=== PATIENT | male | born 1960 | race Caucasian/White ===

== ENCOUNTER 2017-04-01 09:09 | Emergency (ER) | payer BC ==
--- NOTE | 2017-04-01 10:26 | EDM.PDOC ---
ED HPI GENERAL MEDICAL PROBLEM - General Chief Complaint: Lower Extremity Injury/Pain Stated Complaint: KNEE PAIN Time Seen by Provider: 04/01/17 09:26 Source of Information: Reports: Patient, RN Notes Reviewed - History of Present Illness INITIAL COMMENTS - FREE TEXT/NARRATIVE: 56-year-old male comes in with right knee pain. This started 2 days ago. He was ice fishing and he states with the kneeling up and down he started having some discomfort of the right knee. When he was done fishing he tried to load severe up a fairly steep hill to his pickup truck. Her that evening the knee was very painful and swollen. The swelling has gone down yesterday and today but he still continues to have pain with motion and ambulation. No other recent injury. He did have some trouble with the knee many years ago, had a meniscus tear cured with arthroscopic surgery. Treatments GLOVE CLEANER: Reports: Other Medication(s) Other Treatments GLOVE CLEANER: tramadol Right Knee Pain Score (Numeric/FACES): 4 - Related Data Allergies Allergy/AdvReac Type Severity Reaction Status Date / Time acetaminophen [From Tylenol] Allergy Anaphylactic Verified 04/01/17 09:23 Shock aspirin Allergy Anaphylactic Verified 04/01/17 09:23 Shock ibuprofen [From Motrin] Allergy Anaphylactic Verified 04/01/17 09:23 Shock morphine Allergy Anaphylactic Verified 04/01/17 09:23 Shock Home Meds: Home Meds traMADol [Ultram] 50 mg PO Q12HR PRN 04/01/17 [History] Past Medical History HEENT History: Reports: Impaired Vision Musculoskeletal History: Reports: Fracture Other Musculoskeletal History: right arm Dermatologic History: Reports: Eczema - Past Surgical History Musculoskeletal Surgical History: Reports: Arthroscopic Knee, Carpal Tunnel Social & Family History - Family History Family Medical History: Noncontributory - Tobacco Use Smoking Status *Q: Never Smoker - Caffeine Use Caffeine Use: Reports: None - Recreational Drug Use Recreational Drug Use: No Review of Systems - Review of Systems Review Of Systems: See Below Constitutional: Reports: No Symptoms. Denies: Chills, Fever Mouth/Throat: Reports: No Symptoms Respiratory: Reports: No Symptoms Cardiovascular: Reports: No Symptoms GI/Abdominal: Reports: No Symptoms Musculoskeletal: Reports: Joint Pain (Right knee) Skin: Reports: No Symptoms Neurological: Reports: No Symptoms ED EXAM, GENERAL - Physical Exam Exam: See Below General Appearance: Alert, No Apparent Distress Respiratory/Chest: No Respiratory Distress Extremities: Joint Swelling (This very mild swelling of the right knee at this time, no joint effusion), Other (He does have very mild tenderness of the lower medial aspect of the knee, pain with flexion and extension, joint stable). No: Pedal Edema, Leg Pain, Increased Warmth, Redness Skin Exam: Warm, Dry, Normal Color Course - Vital Signs Last Recorded V/S: Last Vital Signs Temp 98.5 F 04/01/17 09:17 Pulse 84 04/01/17 09:17 Resp 18 04/01/17 09:17 BP 142/89 H 04/01/17 09:17 Pulse Ox 100 04/01/17 09:17 - Orders/Labs/Meds Orders: Active Orders 24 hr Category Date Time Status Knee Min 4V Rt [CR] Stat Exams 04/01/17 09:40 Taken - Re-Assessments/Exams Free Text/Narrative Re-Assessment/Exam: 04/01/17 10:43 X-rays the knee does not show any visible acute bony abnormality. Departure - Departure Time of Disposition: 10:21 Disposition: Home, Self-Care 01 Condition: Fair Clinical Impression: Right knee sprain Qualifiers: Encounter type: initial encounter Involved ligament of knee: unspecified ligament Qualified Code(s): S83.91XA - Sprain of unspecified site of right knee , initial encounter - Discharge Information Instructions: Knee Sprain Referrals: Brenda Spaulding [Primary Care Provider] - Forms: ED Department Discharge Additional Instructions: Rest leg and knee, increase activity slowly as tolerated, alternating ice and heat today will help the discomfort and inflammation, prednisone 40 mg, two 20 mg tabs daily for 5 days, follow-up with one of our orthopedists if symptoms not resolving over the next 3-5 days as expected or if having frequent reoccurrence of knee pain and swelling. Return to ED as needed. - My Orders Last 24 Hours: My Active Orders 04/01/17 09:40 Knee Min 4V Rt [CR] Stat - Assessment/Plan Last 24 Hours: My Active Orders 04/01/17 09:40 Knee Min 4V Rt [CR] Stat
--- NOTE | 2017-04-02 07:59 | CR ---
Right knee: Four views of the right knee were obtained. Comparison: No prior knee study. Calcification is seen off the medial and posterior knee believed to be dystrophic. Medial and lateral joint compartments are maintained in height. Small joint effusion is seen. Minimal spur is noted off the superior patella. No acute fracture or other bony abnormality is seen. Impression: 1. Small joint effusion. Soft tissue calcification. Minimal spurring off the superior patella. 2. No acute bony abnormality is appreciated. Diagnostic code #2
== END 2017-04-01 10:32 | disposition home or self-care (01) ==
LOC: JD.ED 09:09
DX: S83.91XA Sprain of unspecified site of right knee, initial encounter (principal); Z88.8 Allergy status to other drugs, medicaments and biological substances; Z88.6 Allergy status to analgesic agent; Z88.5 Allergy status to narcotic agent; X58.XXXA Exposure to other specified factors, initial encounter
CPT/HCPCS: 73564-26-RT; 73564-RT; 99283

== ENCOUNTER 2018-12-11 08:00 | Inpatient (IN) | payer OTHER ==
[~2018-12-11 08:00] MED LIST: Albuterol 0.083% 2.5 MG/3 ML Neb Soln NEB SCH; Bisacodyl 5 MG Tab PO PRN; EPINEPHrine 1 MG/1 ML Amp ONE; Famotidine 20 MG Tab PO SCH; HYDROmorphone 0.5 MG/0.5 ML Syringe IVPUSH PRN; Lactated Ringers 1,000 ML IV SCH; Lidocaine 1%/Sod Bicarbonate in NS 8.4% 1 ML Syringe IDERM PRN; Magnesium Hydroxide 400 MG/5 ML Susp 30 ML Cup PO PRN; Naloxone 0.4 MG/ML SDV IVPUSH PRN; Ondansetron 4 MG/2 ML SDV IVPUSH PRN; Pregabalin 25 MG Cap PO SCH; Ropivacaine 0.5% 5 MG/ML 30 ML SDV ONE; Sennosides 8.6 MG Tab PO PRN; Sodium Chloride 0.9% 10 ML Syringe FLUSH PRN; ceFAZolin 2 GM in Premix Bag 1 BAG IV SCH; oxyCODONE 5 MG Tab PO PRN; oxyCODONE ER 10 MG TAB.ER PO SCH
[2018-12-11] MEDS ORDERED: Ketamine 500 mg/10 ML MDV ONE (08:45)
[2018-12-11] MEDS ORDERED: Propofol 200 MG/20 ML SDV ONE ×2 (08:45→10:59)
[2018-12-11] MEDS ORDERED: Midazolam 1 MG/ML 2 ML SDV ONE (08:45)
[2018-12-11] MEDS ORDERED: fentaNYL 100 MCG/2 ML SDV ONE (08:45)
[2018-12-11] MEDS ORDERED: Lidocaine 1% 4 ML ONE (08:46)
[2018-12-11] MEDS ORDERED: Bupivacaine 0.75% 30 ML SDV ONE (08:47)
[2018-12-11] MEDS ORDERED: ceFAZolin 1 GM Vial ONE ×2 (09:07→09:08)
[2018-12-11] MEDS ORDERED: Vancomycin 1 GM SDV ONE (09:07)
[2018-12-11] MEDS ORDERED: Iodine/Sodium Iodide 2% Tincture 30 ML Bottle ONE (09:08)
[2018-12-11] MEDS ORDERED: Bupivacaine 0.25% 10 ML SDV ONE (09:12)
--- NOTE | 2018-12-11 09:21 | PCM.PREANE ---
Preanesthetic Assessment - Anesthesia/Transfusion/Family Hx Anesthesia History: Prior Anesthesia Without Reaction Family History of Anesthesia Reaction: No Transfusion History: No Prior Transfusion(s) - Review of Systems General: No Symptoms Pulmonary: No Symptoms (TOM does wear CPAP) Cardiovascular: No Symptoms Gastrointestinal: No Symptoms Neurological: No Symptoms, Other Other: Reports: Anxiety - Physical Assessment NPO Status Date: 12/10/18 NPO Status Time: 22:00 Vital Signs: Last Vital Signs Temp 36.6 C 12/11/18 08:10 Pulse 63 12/11/18 08:10 Resp 16 12/11/18 08:10 BP 120/79 12/11/18 08:10 Pulse Ox 98 12/11/18 08:10 Height: 1.83 m Weight: 89.811 kg ASA Class: 2 Mental Status: Alert & Oriented x3 Airway Class: Mallampati = 2 Dentition: Reports: Normal Dentition (Wear noted to enamel.) Thyro-Mental Finger Breadths: 3 Mouth Opening Finger Breadths: 3 ROM/Head Extension: Full Lungs: Clear to Auscultation, Normal Respiratory Effort Cardiovascular: Regular Rate, Regular Rhythm - Lab Values: Laboratory Last Values MRSA (PCR) Negative 12/10/18 14:36 - Imaging/EKG Impressions: SR with a 1st degree AV block at 52bmp - Allergies Allergies/Adverse Reactions: Allergies Allergy/AdvReac Type Severity Reaction Status Date / Time acetaminophen [From Tylenol] Allergy Anaphylactic Verified 12/10/18 15:29 Shock aspirin Allergy Anaphylactic Verified 12/10/18 15:29 Shock ibuprofen [From Motrin] Allergy Anaphylactic Verified 12/10/18 15:29 Shock - Anesthesia Plan Pre-Op Medication Ordered: Anxiolytic - Acknowledgements Anesthesia Type Planned: Spinal Pt an Appropriate Candidate for the Planned Anesthesia: Yes Alternatives and Risks of Anesthesia Discussed w Pt/Guardian: Yes Pt/Guardian Understands and Agrees with Anesthesia Plan: Yes Additional Comments: Preoperative CXR documented atelectasis. Preoperative nebulizer treatment administered. Patient educted on coughing and deep breathing postoperatively. IS recommended for postoperative period. [place] and Dr. Ghosh notified. 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 Musculoskeletal History: Reports: Back Pain, Chronic, Fracture Other Musculoskeletal History: right arm Neurological History: Reports: None Psychiatric History: Reports: Anxiety, Other (See Below) Other Psychiatric History: fatigue, insomnia Endocrine/Metabolic History: Reports: Other (See Below) Other Endocrine/Metabolic History: night sweats Hematologic History: Reports: None Immunologic History: Reports: None Oncologic (Cancer) History: Reports: None Dermatologic History: Reports: Eczema - Past Surgical History Head Surgeries/Procedures: Reports: None HEENT Surgical History: Reports: None Cardiovascular Surgical History: Reports: None Respiratory Surgical History: Reports: None GI Surgical History: Reports: Colonoscopy, Hernia Repair/Other Female Surgical History: Reports: None Male Surgical History: Reports: None Endocrine Surgical History: Reports: None Neurological Surgical History: Reports: None Musculoskeletal Surgical History: Reports: Arthroscopic Knee, Carpal Tunnel Oncologic Surgical History: Reports: None Dermatological Surgical History: Reports: None - SUBSTANCE USE Smoking Status *Q: Never Smoker Recreational Drug Use History: No - HOME MEDS Home Medications: Home Meds traMADol [Ultram] 50 mg PO Q12HR PRN 04/01/17 [History] Calcium Carbonate [Calcium] 600 mg PO DAILY 12/10/18 [History] Cholecalciferol (Vitamin D3) [Vitamin D3] 5,000 unit PO DAILY 12/10/18 [History] EPINEPHrine [Epipen] 1 dose IM ONETIME PRN 12/10/18 [History] Escitalopram Oxalate 10 mg PO BEDTIME 12/10/18 [History] Sildenafil 25 mg PO ASDIRECTED PRN 12/10/18 [History] Fish Oil/[place]-3 Fatty Acids [Fish Oil] 1,200 mg PO DAILY 12/11/18 [History] - CURRENT (IN HOUSE) MEDS Current Meds: Current Medications Albuterol (Proventil Neb Soln) 2.5 mg NEB ONETIME [facility] Stop: 12/11/18 18:00 Bisacodyl (Dulcolax) 5 mg PO DAILY PRN PRN Reason: Constipation Epinephrine HCl 0.3 mg/Cefuroxime Sodium 750 mg/Sodium Chloride 29.7 ml 0 mg .XX ONETIME ONE Stop: 12/11/18 11:01 Cyclobenzaprine HCl (Flexeril) 10 mg PO TID PRN PRN Reason: Spasms Docusate Sodium (Colace) 100 mg PO BID [facility] Famotidine (Pepcid) 20 mg PO Q12HR [facility] Hydromorphone HCl (Dilaudid) 0.2 mg IVPUSH Q2H PRN PRN Reason: Pain (moderate 4-6) Lactated Ringer's (Ringers, Lactated) 1,000 mls @ 125 mls/hr IV ASDIRECTED [facility] Stop: 12/11/18 23:00 Last Admin: 12/11/18 08:15 Dose: 125 mls/hr Cefazolin Sodium/Dextrose 2 gm (/ Premix) 50 mls @ 100 mls/hr IV Q8H [facility] Stop: 12/11/18 23:44 Lidocaine/Sodium Bicarbonate (Buffered Lidocaine 1% In Ns 8.4%) 0.25 ml IDERM ONETIME PRN PRN Reason: Prior to IV Start Stop: 12/11/18 18:00 Last Admin: 12/11/18 08:15 Dose: 0.25 ml Magnesium Hydroxide (Milk Of Magnesia) 30 ml PO BID PRN PRN Reason: Constipation Naloxone HCl (Narcan) 0.1 mg IVPUSH Q5M PRN PRN Reason: Oversedation Ondansetron HCl (Zofran) 4 mg IVPUSH Q6H PRN PRN Reason: Nausea/Vomiting Oxycodone HCl (Oxycontin) 10 mg PO ONETIME [facility] Stop: 12/11/18 13:30 Last Admin: 12/11/18 08:57 Dose: 10 mg Oxycodone HCl (Oxycodone) 5 - 10 mg PO Q4H PRN PRN Reason: Pain Pregabalin (Lyrica) 50 mg PO ONETIME [facility] Stop: 12/11/18 16:00 Last Admin: 12/11/18 08:57 Dose: 50 mg Rivaroxaban (Xarelto) 10 mg PO DAILY [facility] Senna (Senna) 8.6 mg PO BID PRN PRN Reason: Constipation Sodium Chloride (Saline Flush) 10 ml FLUSH ASDIRECTED PRN PRN Reason: Keep Vein Open Stop: 12/11/18 18:00 Discontinued Medications Bupivacaine HCl (Sensorcaine-Mpf 0.75%) Confirm Administered Dose 30 ml .ROUTE .STK-MED ONE Stop: 12/11/18 08:48 Bupivacaine HCl (Sensorcaine-Mpf 0.25%) Confirm Administered Dose 30 ml .ROUTE .STK-MED ONE Stop: 12/11/18 09:08 Bupivacaine HCl (Sensorcaine-Mpf 0.25%) Confirm Administered Dose 10 ml .ROUTE .STK-MED ONE Stop: 12/11/18 09:13 Cefazolin Sodium (Ancef) Confirm Administered Dose 2 gm .ROUTE .STK-MED ONE Stop: 12/11/18 08:47 Cefazolin Sodium (Ancef) Confirm Administered Dose 2 gm .ROUTE .STK-MED ONE Stop: 12/11/18 09:08 Cefazolin Sodium (Ancef) Confirm Administered Dose 2 gm .ROUTE .STK-MED ONE Stop: 12/11/18 09:09 Epinephrine HCl (Adrenalin) Confirm Administered Dose 1 mg .ROUTE .STK-MED ONE Stop: 12/11/18 07:34 Famotidine (Pepcid) 20 mg PO Q12H [facility] Fentanyl (Sublimaze) Confirm Administered Dose 100 mcg .ROUTE .ST-MED ONE Stop: 12/11/18 08:46 Cefazolin Sodium/Dextrose 2 gm (/ Premix) 50 mls @ 100 mls/hr IV Q8H [facility] Stop: 12/11/18 23:29 Lidocaine HCl (Xylocaine-Mpf 1%) Confirm Administered Dose 4 mls @ as directed .ROUTE .STK-MED ONE Stop: 12/11/18 08:47 Iodine (Iodine 2% Mild Tincture) Confirm Administered Dose 30 ml .ROUTE .STK- MED ONE Stop: 12/11/18 09:08 Iodine (Iodine 2% Mild Tincture) Confirm Administered Dose 30 ml .ROUTE .STK- MED ONE Stop: 12/11/18 09:09 Ketamine HCl (Ketalar) Confirm Administered Dose 500 mg .ROUTE .STK-MED ONE Stop: 12/11/18 08:46 Lidocaine HCl (Xylocaine-Mpf 1%) Confirm Administered Dose 5 ml .ROUTE .STK-MED ONE Stop: 12/11/18 08:48 Midazolam HCl (Versed 1 Mg/Ml) Confirm Administered Dose 2 mg .ROUTE .STK-MED ONE Stop: 12/11/18 08:46 Propofol (Diprivan 20 Ml) Confirm Administered Dose 600 mg .ROUTE .STK-MED ONE Stop: 12/11/18 08:46 Rivaroxaban (Xarelto) 10 mg PO DAILY [facility] Ropivacaine (Naropin 0.5%) Confirm Administered Dose 30 ml .ROUTE .STK-MED ONE Stop: 12/11/18 07:34 Tranexamic Acid (Cyklokapron) Confirm Administered Dose 1,000 mg .ROUTE .STK- MED ONE Stop: 12/11/18 09:08 Tranexamic Acid (Cyklokapron) Confirm Administered Dose 1,000 mg .ROUTE .STK- MED ONE Stop: 12/11/18 09:09 Vancomycin HCl (Vancomycin) Confirm Administered Dose 1 gm .ROUTE .STK-MED ONE Stop: 12/11/18 09:08 Vancomycin HCl (Vancomycin) Confirm Administered Dose 1 gm .ROUTE .STK-MED ONE Stop: 12/11/18 09:09
[2018-12-11] MEDS ORDERED: Dexamethasone 4 MG/ML 5 ML MDV ONE (09:58)
[2018-12-11] MEDS: Iodine/Sodium Iodide 2% Tincture 30 ML Bottle ONE ×2 (10:32→11:00)
[2018-12-11] MEDS: ceFAZolin 1 GM Vial ONE ×2 (10:33→11:01)
[2018-12-11] MEDS: Bupivacaine 0.25% 10 ML SDV ONE ×2 (10:34→11:07)
[2018-12-11] MEDS: CEFUROXIME ONE ×6 (10:36→11:07)
[2018-12-11] MEDS: Vancomycin 1 GM SDV ONE ×2 (10:36→11:08)
[2018-12-11] MEDS: EPINEPHRINE ONE ×6 (10:36→11:07)
[2018-12-11] MEDS: SODIUM CHLORIDE 0.9% ONE ×6 (10:36→11:07)
[2018-12-11] MEDS ORDERED: fentaNYL 100 MCG/2 ML SDV IVPUSH PRN (10:52)
[2018-12-11] MEDS ORDERED: diphenhydrAMINE 50 MG/ML SDV IVPUSH PRN (10:52)
[2018-12-11] MEDS ORDERED: Lactated Ringers 1,000 ML ONE (10:59)
[2018-12-11] MEDS ORDERED: SODIUM CHLORIDE 0.9% ONE ×3 (11:00)
[2018-12-11] MEDS ORDERED: CEFUROXIME ONE ×3 (11:00)
[2018-12-11] MEDS ORDERED: EPINEPHRINE ONE ×3 (11:00)
--- NOTE | 2018-12-11 11:48 | PCM.POSTAN ---
POST ANESTHESIA ASSESSMENT - MENTAL STATUS Mental Status: Other (Drowsy) - VITAL SIGNS Vital Signs: Last Vital Signs Temp 36.6 C 12/11/18 08:10 Pulse 63 12/11/18 08:10 Resp 16 12/11/18 08:10 BP 120/79 12/11/18 08:10 Pulse Ox 98 12/11/18 08:10 - RESPIRATORY Respiratory Status: Respiratory Rate WNL, Airway Patent, O2 Saturation Stable, Supplemental Oxygen - CARDIOVASCULAR CV Status: Pulse Rate WNL, Blood Pressure Stable - GASTROINTESTINAL GI Status: No Symptoms - PAIN Pain Score: 0 - POST OP HYDRATION Hydration Status: Adequate & Stable
--- NOTE | 2018-12-11 12:20 | PCM.SN ---
- Free Text/Narrative Note: Right selective femoral nerve block at the adductor canal for post-procedure pain control Time Out: 1158 Start: 1158 End: 1205 Chart reviewed. Consent signed. Questions answered. Appropriate monitors applied. Time out performed. Right mid-shaft femur evaluated with ultrasound. Scanning medially femur, I was able to identify the femoral artery in the adductor canal. The saphenous nerve was lateral to the artery. The skin was prepped lateral to the ultrasound probe with chlorahexadine. The 21ga 4 insulated block needle was inserted under direct ultrasound guidance into the adductor canal. 20mL of 0.5% ropivacaine with 1:200,000 epinephrine was injected cirmcumferentially about the nerve with intermittent negative aspiration every 5mL. Patient tolerated the procedure well. No complications noted. See pictures on progress note and vital signs on nurses notes. Block completed postoperatively. Ignacio Serrato CRNA
--- NOTE | 2018-12-11 13:07 | CR ---
Right knee: AP and lateral views of the right knee were obtained. Comparison: Previous right knee radiographic study of 04/01/17 and right knee MRI of 04/12/17. Findings: Knee prosthesis is seen. Components are aligned. Underlying bony structures are intact. Soft tissue air noted from the surgical procedure. Impression: 1. Satisfactory postop radiographic appearance of recently placed right knee prosthesis. Diagnostic code #2
[2018-12-11] MEDS ORDERED: SILDENAFIL 25 MG PO PRN (14:01)
[2018-12-11] MEDS ORDERED: EPINEPHrine 0.3 MG/0.3 ML Pen Autoinjector IM PRN (14:01)
--- NOTE | 2018-12-11 14:15 | PCM.CONS ---
H&P History of Present Illness - General Date of Service: 12/11/18 Admit Problem/Dx: Admission Diagnosis/Problem Admission Diagnosis/Problem Osteoarthritis of knee Source of Information: Patient, Family, Old Records, RN Notes Reviewed History Limitations: Reports: Physical Impairment - History of Present Illness Initial Comments - Free Text/Narative: This is a 58 yo white male with past medical hx/o TOM on CPA, Hx/o Back Pain, Vit D Deficiency, NSAID Allergy, Sexual Dysfunction, Depression and Anxiety who underwent Right TKA this morning POD#0. Currently, he is doing relatively well. His pain is controlled and denies any acute issues. He tolerated his meal and reports no GI symptoms. We were consulted for post operative care and medical management. Right Knee Pain Score (Numeric/FACES): 6 - Related Data Allergies/Adverse Reactions: Allergies Allergy/AdvReac Type Severity Reaction Status Date / Time acetaminophen [From Tylenol] Allergy Anaphylactic Verified 12/10/18 15:29 Shock aspirin Allergy Anaphylactic Verified 12/10/18 15:29 Shock ibuprofen [From Motrin] Allergy Anaphylactic Verified 12/10/18 15:29 Shock Home Medications: Home Meds Calcium Carbonate [Calcium] 600 mg PO DAILY 12/10/18 [History] Cholecalciferol (Vitamin D3) [Vitamin D3] 5,000 unit PO DAILY 12/10/18 [History] EPINEPHrine [Epipen] 1 dose IM ONETIME PRN 12/10/18 [History] Escitalopram Oxalate 10 mg PO BEDTIME 12/10/18 [History] Sildenafil 25 mg PO ASDIRECTED PRN 12/10/18 [History] Magnesium Citrate 2 tsp PO DAILY 12/11/18 [History] Bisacodyl [Dulcolax] 5 mg PO DAILY PRN tablet 12/12/18 [Rx] Cyclobenzaprine [Flexeril] 10 mg PO TID PRN #40 tablet 12/12/18 [Rx] Docusate Sodium [Colace] 100 mg PO BID cap 12/12/18 [Rx] Famotidine [Pepcid] 20 mg PO Q12HR tablet 12/12/18 [Rx] Magnesium Hydroxide [Milk of Magnesia] 30 ml PO BID PRN cup 12/12/18 [Rx] Rivaroxaban [Xarelto] 10 mg PO DAILY #30 tablet 12/12/18 [Rx] Sennosides [Senna] 8.6 mg PO BID PRN tablet 12/12/18 [Rx] Tapentadol [Nucynta] 50 - 100 mg PO Q4H PRN #60 tablet 12/12/18 [Rx] Past Medical History HEENT History: Reports: Impaired Vision Cardiovascular History: Reports: None Respiratory History: Reports: Sleep Apnea Gastrointestinal History: Reports: None Genitourinary History: Reports: Other (See Below) Other Genitourinary History: sexual dysfunction 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 Musculoskeletal History: Reports: Back Pain, Chronic, Fracture Other Musculoskeletal History: right arm Neurological History: Reports: None Psychiatric History: Reports: Anxiety, Other (See Below) Other Psychiatric History: fatigue, insomnia Endocrine/Metabolic History: Reports: Other (See Below) Other Endocrine/Metabolic History: night sweats Hematologic History: Reports: None Immunologic History: Reports: None Oncologic (Cancer) History: Reports: None Dermatologic History: Reports: Eczema - Past Surgical History Head Surgeries/Procedures: Reports: None HEENT Surgical History: Reports: None Cardiovascular Surgical History: Reports: None Respiratory Surgical History: Reports: None GI Surgical History: Reports: Colonoscopy, Hernia Repair/Other Male Surgical History: Reports: None Endocrine Surgical History: Reports: None Neurological Surgical History: Reports: None Musculoskeletal Surgical History: Reports: Arthroscopic Knee, Carpal Tunnel Oncologic Surgical History: Reports: None Dermatological Surgical History: Reports: None Social & Family History - Family History Family Medical History: Noncontributory - Tobacco Use Smoking Status *Q: Never Smoker - Caffeine Use Caffeine Use: Reports: Soda - Recreational Drug Use Recreational Drug Use: No H&P Review of Systems - Review of Systems: Review Of Systems: See Below General: Denies: Fever, Chills, Fatigue HEENT: Reports: No Symptoms Pulmonary: Denies: Shortness of Breath Cardiovascular: Denies: Chest Pain, Palpitations, Dyspnea on Exertion, Lightheadedness Gastrointestinal: Denies: Abdominal Pain, Decreased Appetite, Nausea, Vomiting Genitourinary: Reports: No Symptoms Musculoskeletal: Reports: No Symptoms Skin: Denies: Cyanosis, Mottled, Diaphoresis, Bruising Psychiatric: Denies: Confusion, Depression, Anxiety, Agitation, Hallucinations, Suicidal Ideation, Homicidal Ideation Neurological: Reports: Difficulty Walking, Gait Disturbance. Denies: Confusion , Weakness Hematologic/Lymphatic: Reports: No Symptoms Immunologic: Reports: No Symptoms Exam - Exam Exam: See Below - Vital Signs Vital Signs: Last Vital Signs Temp 36.2 C 12/11/18 12:43 Pulse 63 12/11/18 13:02 Resp 18 12/11/18 12:43 BP 112/56 L 12/11/18 13:02 Pulse Ox 100 12/11/18 13:02 Weight: 89.811 kg - Exam General: Alert, Oriented, Cooperative HEENT: Conjunctiva Clear, EACs Clear, EOMI, Hearing Intact, Mucosa Moist & [place] , Nares Patent, Normal Nasal Septum, Posterior Pharynx Clear, Pupils Equal, Pupils Reactive Neck: Supple, Trachea Midline Lungs: Clear to Auscultation, Normal Respiratory Effort Cardiovascular: Regular Rate, Regular Rhythm GI/Abdominal Exam: Normal Bowel Sounds, Soft, Non-Tender, No Organomegaly, No Distention, No Abnormal Bruit (Male) Exam: Deferred Rectal (Males) Exam: Deferred Back Exam: Normal Inspection, Decreased Range of Motion Extremities: Normal Inspection, Normal Range of Motion, Non-Tender, No Pedal Edema, Normal Capillary Refill, Limited Range of Motion (right lower extremity) Peripheral Pulses: 2+: Dorsalis Pedis (L), Dorsalis Pedis (R) Skin: Warm, Dry, Intact Skin Alteration Location (Drawings Not To Scale): 1 - dressed, wrapped and covered Neuro Extensive - Mental Status: Oriented x3, Normal Cognition, Memory Intact Neuro Extensive - Motor, Sensory, Reflexes: CN II-XII Intact (limited due to recent surgery and pain/discomfort with movement), Abnormal Gait Psychiatric: Alert, Normal Affect, Normal Mood - Patient Data Lab Results Last 24 hrs: Laboratory Results - last 24 hr 12/10/18 Range/Units 14:36 MRSA (PCR) Negative Result Diagrams: 12/12/18 05:03 12/12/18 05:03 Consult PN Assessment/Plan POD#: 0 Procedures: Procedures ASSAY OF FREE TESTOSTERONE (08/21/18) ASSAY OF MAGNESIUM (11/25/15) ASSAY OF PREALBUMIN (11/25/18) ASSAY OF TOTAL TESTOSTERONE (08/21/18) ASSAY THYROID STIM HORMONE (08/21/18) COMPLETE CBC W/AUTO DIFF WBC (11/25/18) COMPREHEN METABOLIC PANEL (11/25/18) CULTURE SCREEN ONLY (05/07/17) EMERGENCY DEPT VISIT (04/01/17) INFLUENZA ASSAY W/OPTIC (05/07/17) LIPID PANEL (11/25/15) LYME DISEASE ANTIBODY (12/19/17) METABOLIC PANEL TOTAL CA (12/19/17) MRI JNT OF LWR EXTRE W/O DYE (04/12/17) POLYSOM 6/> YRS 4/> SHAWNA (10/16/18) POLYSOM 6/>YRS CPAP 4/> PARM (11/18/18) PROTHROMBIN TIME (11/25/18) ROUTINE VENIPUNCTURE (11/25/18) STREP A AG IA (05/07/17) THROMBOPLASTIN TIME PARTIAL (11/25/18) URINALYSIS AUTO W/SCOPE (08/21/18) X-RAY EXAM CHEST 2 VIEWS (11/25/18) X-RAY EXAM KNEE 4 OR MORE (04/01/17) X-RAY EXAM L-S SPINE 2/3 VWS (08/17/16) Problem List Initiated/Reviewed/Updated: Yes Plan: Assessment: Acute: S/p Right TKA - Pain is controlled - Defer management to primary team Post-Operative Care - Clinically stable although he had hypotension and a brief episode of bradycardia (no EKG taken) - No acute issues - Tolerated supper w/o any GI symptoms - Telemetry and Monitor - Cautioned patient on narcotic use and educated him about pain management Post-Operative Hypotension - Expect to improve tomorrow - Monitor output and Hgb level Intraoperative Bradycardia - HR dropped in the 50s - Likely secondary to inpatient medications - Will continue to monitor Chronic: TOM on CPA, Hx/o Back Pain, Vit D Deficiency, NSAID Allergy, Sexual Dysfunction, Depression and Anxiety Plan: From the hospitalist standpoint, we recommend the following as above, resume home medications except sildenafil, telemetry to monitor HR, routine morning labs, and PT/OT after surgery. Thank you for the opportunity to participate in the manage of this patient. We will follow him along with you. Requesting Provider: Dr. Ghosh Date Consult Requested: 12/11/18 Reason for Consult: medical management Patient History Reviewed: Yes Admission H&P Reviewed: Yes Consult Result/Summary:: stable Notified Requestor: Yes Time Spent (in minutes): 25
[2018-12-11] MEDS: ceFAZolin 2 GM in Premix Bag 1 BAG IV SCH (16:19)
[2018-12-11] MEDS: Cyclobenzaprine 10 MG Tab PO PRN (17:23)
[2018-12-11] MEDS: HYDROmorphone 0.5 MG/0.5 ML Syringe IVPUSH PRN ×2 (19:55→20:57)
[2018-12-11] MEDS: Docusate Sodium 100 MG Cap PO SCH (20:57)
[2018-12-11] MEDS: Famotidine 20 MG Tab PO SCH (20:57)
[2018-12-11] MEDS ORDERED: Citalopram 20 MG Tab PO SCH (21:00)
[2018-12-11] MEDS ORDERED: MAGNESIUM CITRATE PO SCH (21:00)
[2018-12-12] MEDS: HYDROmorphone 0.5 MG/0.5 ML Syringe IVPUSH PRN (00:19)
[2018-12-12] MEDS: ceFAZolin 2 GM in Premix Bag 1 BAG IV SCH ×2 (00:21→10:01)
[2018-12-12] MEDS: Rivaroxaban 10 MG Tab PO SCH ×2 (07:31→11:06)
--- NOTE | 2018-12-12 07:52 | PCM.SURGPN ---
- General Info Date of Service: 12/12/18 POD#: 1 Functional Status: Reports: Tolerating Diet, Ambulating, Urinating, Incentive Spirometry, Other (The pt's pain was not controlled with oxycodone. Nucynta rx provided and pt states his pain is better controlled.) - Patient Data Vitals - Most Recent: Last Vital Signs Temp 98.1 F 12/12/18 04:43 Pulse 73 12/12/18 04:43 Resp 16 12/12/18 04:43 BP 139/85 12/12/18 04:43 Pulse Ox 99 12/12/18 04:43 Weight - Most Recent: 201 lb I&O - Last 24 Hours: Intake & Output 12/11/18 12/12/18 12/12/18 22:59 06:59 14:59 Intake Total 640 1215 Output Total 750 400 Balance -110 815 Lab Results Last 24 Hrs: Laboratory Results - last 24 hr 12/12/18 12/12/18 Range/Units 05:03 05:03 WBC 13.56 H (4.23-9.07) K/mm3 RBC 4.14 L (4.63-6.08) M/mm3 Hgb 11.4 L D (13.7-17.5) gm/L Hct 35.0 L (40.1-51.0) % MCV 84.5 (79.0-92.2) fl MCH 27.5 (25.7-32.2) pg MCHC 32.6 (32.2-35.5) g/dl RDW Std Deviation 41.3 (35.1-43.9) fL Plt Count 291 (163-337) K/mm3 MPV 10.0 (9.4-12.3) fl Sodium 133 L (136-145) mEq/L Potassium 4.3 (3.5-5.1) mEq/L Chloride 99 (98-107) mEq/L Carbon Dioxide 23 (21-32) mEq/L Anion Gap 15.3 H (5-15) BUN 19 H (7-18) mg/dL Creatinine 0.9 (0.7-1.3) mg/dL Est Cr Clr Drug Dosing 100.59 mL/min Estimated GFR (MDRD) > 60 (>60) mL/min BUN/Creatinine Ratio 21.1 H (14-18) Glucose 151 H (74-106) mg/dL Calcium 8.3 L (8.5-10.1) mg/dL Total Bilirubin 0.6 (0.2-1.0) mg/dL AST 17 (15-37) U/L ALT 19 (16-63) U/L Alkaline Phosphatase 63 (46-116) U/L Total Protein 6.8 (6.4-8.2) g/dl Albumin 3.2 L (3.4-5.0) g/dl Globulin 3.6 gm/dL Albumin/Globulin Ratio 0.9 L (1-2) Med Orders - Current: Current Medications Bisacodyl (Dulcolax) 5 mg PO DAILY PRN PRN Reason: Constipation Calcium Carbonate/Glycine (Calcium Carbonate) 600 mg PO DAILY [facility] Cholecalciferol (Vitamin D3) 5,000 unit PO DAILY [facility] Citalopram Hydrobromide (Celexa) 20 mg PO BEDTIME [facility] Last Admin: 12/11/18 20:57 Dose: 20 mg Cyclobenzaprine HCl (Flexeril) 10 mg PO TID PRN PRN Reason: Spasms Last Admin: 12/11/18 17:23 Dose: 10 mg Docusate Sodium (Colace) 100 mg PO BID [facility] Last Admin: 12/11/18 20:57 Dose: 100 mg Epinephrine HCl (Epipen) 0.3 mg IM ONETIME PRN PRN Reason: anaphylaxis Famotidine (Pepcid) 20 mg PO Q12HR [facility] Last Admin: 12/11/18 20:57 Dose: 20 mg Hydromorphone HCl (Dilaudid) 0.2 mg IVPUSH Q1H PRN PRN Reason: Pain Last Admin: 12/12/18 00:19 Dose: 0.2 mg Cefazolin Sodium/Dextrose 2 gm (/ Premix) 50 mls @ 100 mls/hr IV Q8H [facility] Stop: 12/12/18 09:44 Last Admin: 12/12/18 00:21 Dose: 100 mls/hr Magnesium Hydroxide (Milk Of Magnesia) 30 ml PO BID PRN PRN Reason: Constipation Naloxone HCl (Narcan) 0.1 mg IVPUSH Q5M PRN PRN Reason: Oversedation Ondansetron HCl (Zofran) 4 mg IVPUSH Q6H PRN PRN Reason: Nausea/Vomiting Rivaroxaban (Xarelto) 10 mg PO DAILY [facility] Last Admin: 12/12/18 07:31 Dose: Not Given Senna (Senna) 8.6 mg PO BID PRN PRN Reason: Constipation Tapentadol (Nucynta) 50 - 100 mg PO Q6H PRN PRN Reason: Pain Last Admin: 12/12/18 06:04 Dose: 100 mg Discontinued Medications Albuterol (Proventil Neb Soln) 2.5 mg NEB ONETIME [facility] Stop: 12/11/18 18:00 Bupivacaine HCl (Sensorcaine-Mpf 0.75%) Confirm Administered Dose 30 ml .ROUTE .STK-MED ONE Stop: 12/11/18 08:48 Bupivacaine HCl (Sensorcaine-Mpf 0.25%) Confirm Administered Dose 30 ml .ROUTE .STK-MED ONE Stop: 12/11/18 09:08 Last Admin: 12/11/18 11:07 Dose: 30 ml Bupivacaine HCl (Sensorcaine-Mpf 0.25%) Confirm Administered Dose 10 ml .ROUTE .STK-MED ONE Stop: 12/11/18 09:13 Cefazolin Sodium (Ancef) Confirm Administered Dose 2 gm .ROUTE .STK-MED ONE Stop: 12/11/18 08:47 Last Admin: 12/11/18 11:01 Dose: 2 gm Cefazolin Sodium (Ancef) Confirm Administered Dose 2 gm .ROUTE .STK-MED ONE Stop: 12/11/18 09:08 Cefazolin Sodium (Ancef) Confirm Administered Dose 2 gm .ROUTE .STK-MED ONE Stop: 12/11/18 09:09 Epinephrine HCl 0.3 mg/Cefuroxime Sodium 750 mg/Sodium Chloride 29.7 ml 0 mg .XX ONETIME ONE Stop: 12/11/18 11:01 Last Admin: 12/11/18 13:57 Dose: Not Given Dexamethasone (Dexamethasone) Confirm Administered Dose 20 mg .ROUTE .STK-MED ONE Stop: 12/11/18 09:59 Diphenhydramine HCl (Benadryl) 25 mg IVPUSH Q6H PRN PRN Reason: Pruritis Stop: 12/11/18 18:00 Epinephrine HCl (Adrenalin) Confirm Administered Dose 1 mg .ROUTE .STK-MED ONE Stop: 12/11/18 07:34 Famotidine (Pepcid) 20 mg PO Q12H [facility] Last Admin: 12/11/18 13:58 Dose: Not Given Fentanyl (Sublimaze) Confirm Administered Dose 100 mcg .ROUTE .STK-MED ONE Stop: 12/11/18 08:46 Fentanyl (Sublimaze) 50 mcg IVPUSH Q5M PRN PRN Reason: Pain Stop: 12/11/18 18:00 Hydromorphone HCl (Dilaudid) 0.2 mg IVPUSH Q2H PRN PRN Reason: Pain (moderate 4-6) Last Admin: 12/11/18 18:08 Dose: 0.2 mg Lactated Ringer's (Ringers, Lactated) 1,000 mls @ 125 mls/hr IV ASDIRECTED [facility] Stop: 12/11/18 23:00 Last Admin: 12/11/18 08:15 Dose: 125 mls/hr Cefazolin Sodium/Dextrose 2 gm (/ Premix) 50 mls @ 100 mls/hr IV Q8H [facility] Stop: 12/11/18 23:29 Last Admin: 12/11/18 13:58 Dose: Not Given Lidocaine HCl (Xylocaine-Mpf 1%) Confirm Administered Dose 4 mls @ as directed .ROUTE .STK-MED ONE Stop: 12/11/18 08:47 Lactated Ringer's (Ringers, Lactated) Confirm Administered Dose 1,000 mls @ as directed .ROUTE .STK-MED ONE Stop: 12/11/18 11:00 Iodine (Iodine 2% Mild Tincture) Confirm Administered Dose 30 ml .ROUTE .STK- MED ONE Stop: 12/11/18 09:08 Last Admin: 12/11/18 11:00 Dose: 18 ml Iodine (Iodine 2% Mild Tincture) Confirm Administered Dose 30 ml .ROUTE .STK- MED ONE Stop: 12/11/18 09:09 Ketamine HCl (Ketalar) Confirm Administered Dose 500 mg .ROUTE .STK-MED ONE Stop: 12/11/18 08:46 Lidocaine HCl (Xylocaine-Mpf 1%) Confirm Administered Dose 5 ml .ROUTE .STK-MED ONE Stop: 12/11/18 08:48 Lidocaine/Sodium Bicarbonate (Buffered Lidocaine 1% In Ns 8.4%) 0.25 ml IDERM ONETIME PRN PRN Reason: Prior to IV Start Stop: 12/11/18 18:00 Last Admin: 12/11/18 08:15 Dose: 0.25 ml Midazolam HCl (Versed 1 Mg/Ml) Confirm Administered Dose 2 mg .ROUTE .STK-MED ONE Stop: 12/11/18 08:46 Non-Formulary Medication (Sildenafil ) 25 mg PO ASDIRECTED PRN PRN Reason: as directed Non-Formulary Medication (Magnesium Citrate [Magnesium Citrate]) 2 tsp PO DAILY [facility] Oxycodone HCl (Oxycontin) 10 mg PO ONETIME [facility] Stop: 12/11/18 13:30 Last Admin: 12/11/18 08:57 Dose: 10 mg Oxycodone HCl (Oxycodone) 5 - 10 mg PO Q4H PRN PRN Reason: Pain Last Admin: 12/11/18 16:27 Dose: 10 mg Pregabalin (Lyrica) 50 mg PO ONETIME [facility] Stop: 12/11/18 16:00 Last Admin: 12/11/18 08:57 Dose: 50 mg Propofol (Diprivan 20 Ml) Confirm Administered Dose 600 mg .ROUTE .STK-MED ONE Stop: 12/11/18 08:46 Propofol (Diprivan 20 Ml) Confirm Administered Dose 200 mg .ROUTE .STK-MED ONE Stop: 12/11/18 11:00 Rivaroxaban (Xarelto) 10 mg PO DAILY [facility] Ropivacaine (Naropin 0.5%) Confirm Administered Dose 30 ml .ROUTE .STK-MED ONE Stop: 12/11/18 07:34 Sodium Chloride (Saline Flush) 10 ml FLUSH ASDIRECTED PRN PRN Reason: Keep Vein Open Stop: 12/11/18 18:00 Tranexamic Acid (Cyklokapron) Confirm Administered Dose 1,000 mg .ROUTE .STK- MED ONE Stop: 12/11/18 09:08 Last Admin: 12/11/18 11:11 Dose: 1,000 mg Tranexamic Acid (Cyklokapron) Confirm Administered Dose 1,000 mg .ROUTE .STK- MED ONE Stop: 12/11/18 09:09 Vancomycin HCl (Vancomycin) Confirm Administered Dose 1 gm .ROUTE .STK-MED ONE Stop: 12/11/18 09:08 Vancomycin HCl (Vancomycin) Confirm Administered Dose 1 gm .ROUTE .STK-MED ONE Stop: 12/11/18 09:09 Last Admin: 12/11/18 11:08 Dose: 1 gm - Exam Wound/Incisions: Dressing Dry and Intact General: Alert, Cooperative, No Acute Distress Lungs: Normal Respiratory Effort Extremities: Other (NVS intact for BLE. Gurdeep's negative.) - Problem List Review Problem List Initiated/Reviewed/Updated: Yes - My Orders Last 24 Hours: Active Orders 24 hr Category Date Time Status Admission Status [Patient Status] [ADT] Routine ADT 12/11/18 14:53 Active Antiembolic Devices [RC] BID Care 12/11/18 06:51 Active Cooling Warming Measures [RC] ASDIRECTED Care 12/11/18 10:52 Inactive Notify Provider [RC] ASDIRECTED Care 12/11/18 10:52 Active Ready for Discharge [RC] PER UNIT ROUTINE Care 12/12/18 07:49 Ordered Regular Diet [DIET] Diet 12/11/18 Lunch Active Calcium Carbonate Med 12/12/18 09:00 Active 600 mg PO DAILY Cholecalciferol (Vitamin D3) [Vitamin D3] Med 12/12/18 09:00 Active 5,000 unit PO DAILY Citalopram [Celexa] Med 12/11/18 21:00 Active 20 mg PO BEDTIME Docusate Sodium [Colace] Med 12/11/18 21:00 Active 100 mg PO BID EPINEPHrine [Epipen] Med 12/11/18 14:01 Active 0.3 mg IM ONETIME PRN Famotidine [Pepcid] Med 12/11/18 21:00 Active 20 mg PO Q12HR HYDROmorphone [Dilaudid] Med 12/11/18 19:45 Active 0.2 mg IVPUSH Q1H PRN Rivaroxaban [Xarelto] Med 12/11/18 09:00 Active 10 mg PO DAILY Tapentadol [Nucynta] Med 12/11/18 18:20 Active 50 - 100 mg PO Q6H PRN ceFAZolin [Ancef] 2 gm Med 12/11/18 17:15 Active Premix Bag 1 bag IV Q8H Antiembolic Hose [OM.PC] Per Unit Routine Oth 12/11/18 06:53 Ordered Ice Therapy [OM.PC] Per Unit Routine Oth 12/11/18 06:51 Ordered Medication Orders Bisacodyl (Dulcolax) 5 mg PO DAILY PRN PRN Reason: Constipation Calcium Carbonate/Glycine (Calcium Carbonate) 600 mg PO DAILY [facility] Cholecalciferol (Vitamin D3) 5,000 unit PO DAILY [facility] Citalopram Hydrobromide (Celexa) 20 mg PO BEDTIME [facility] Last Admin: 12/11/18 20:57 Dose: 20 mg Cyclobenzaprine HCl (Flexeril) 10 mg PO TID PRN PRN Reason: Spasms Last Admin: 12/11/18 17:23 Dose: 10 mg Docusate Sodium (Colace) 100 mg PO BID [facility] Last Admin: 12/11/18 20:57 Dose: 100 mg Epinephrine HCl (Epipen) 0.3 mg IM ONETIME PRN PRN Reason: anaphylaxis Famotidine (Pepcid) 20 mg PO Q12HR [facility] Last Admin: 12/11/18 20:57 Dose: 20 mg Hydromorphone HCl (Dilaudid) 0.2 mg IVPUSH Q1H PRN PRN Reason: Pain Last Admin: 12/12/18 00:19 Dose: 0.2 mg Admin: 12/11/18 20:57 Dose: 0.2 mg Admin: 12/11/18 19:55 Dose: 0.2 mg Cefazolin Sodium/Dextrose 2 gm (/ Premix) 50 mls @ 100 mls/hr IV Q8H [facility] Stop: 12/12/18 09:44 Last Admin: 12/12/18 00:21 Dose: 100 mls/hr Infusion: 12/11/18 16:49 Dose: 100 mls/hr Admin: 12/11/18 16:19 Dose: 100 mls/hr Magnesium Hydroxide (Milk Of Magnesia) 30 ml PO BID PRN PRN Reason: Constipation Naloxone HCl (Narcan) 0.1 mg IVPUSH Q5M PRN PRN Reason: Oversedation Ondansetron HCl (Zofran) 4 mg IVPUSH Q6H PRN PRN Reason: Nausea/Vomiting Rivaroxaban (Xarelto) 10 mg PO DAILY [facility] Last Admin: 12/12/18 07:31 Dose: Senna (Senna) 8.6 mg PO BID PRN PRN Reason: Constipation Tapentadol (Nucynta) 50 - 100 mg PO Q6H PRN PRN Reason: Pain Last Admin: 12/12/18 06:04 Dose: 100 mg Admin: 12/12/18 00:21 Dose: 100 mg Admin: 12/11/18 18:39 Dose: 100 mg - Assessment Assessment (Free Text/Narrative):: POD#1 - right TKA - Plan Plan (Free Text/Narrative):: 1. Hgb 11.4. 2. Discharge to home today if cleared by Hospitalist service and therapies. 3. Xarelto 10mg PO daily, frequent mobility, TEDs. 4. Outpatient therapy. The pt's case was discussed with Dr. Ghosh.
[2018-12-12] MEDS ORDERED: Calcium Carbonate 600 MG Tab PO SCH (09:00)
[2018-12-12] MEDS ORDERED: Cholecalciferol (Vitamin D3) 5,000 UNIT Tab PO SCH (09:00)
[2018-12-12] MEDS ORDERED: Rivaroxaban 10 MG Tab PO SCH (09:00)
--- NOTE | 2018-12-12 09:54 | PCM48HPAN ---
Post Anesthesia Note - EVALUATION WITHIN 48HRS OF ANESTHETIC Vital Signs in Normal Range: Yes Patient Participated in Evaluation: Yes Respiratory Function Stable: Yes Airway Patent: Yes Cardiovascular Function Stable: Yes Hydration Status Stable: Yes Pain Control Satisfactory: Yes Nausea and Vomiting Control Satisfactory: Yes Mental Status Recovered: Yes Vital Signs: Last Vital Signs Temp 36.7 C 12/12/18 04:43 Pulse 73 12/12/18 04:43 Resp 16 12/12/18 04:43 BP 139/85 12/12/18 04:43 Pulse Ox 99 12/12/18 04:43 - COMMENTS/OBSERVATIONS Free Text/Narrative:: Patient states block wore of around 1700 yesterday, and pain was very intense throughout the night. Patient states he was able to sleep after midnight. Patient states pain is better and desires more pain meds, patient's nurse notified.
[2018-12-12] MEDS: Docusate Sodium 100 MG Cap PO SCH (09:56)
[2018-12-12] MEDS: Cyclobenzaprine 10 MG Tab PO PRN (09:56)
[2018-12-12] MEDS: Famotidine 20 MG Tab PO SCH (11:05)
--- NOTE | 2018-12-15 07:47 | PCM.DCSUM1 ---
Discharge Summary - Hospital Course Brief History: Crystal is a 58 yo male who underwent right TKA with Dr. Ghosh on 2018. The procedure was completed under spinal anesthesia with sedation. The pt tolerated the procedure well and was admitted to the Medical-Surgical Unit following surgery. Medical management was provided by the Hospitalist service. The pt participated in PT and OT and progressed well. He was allowed to WBAT and used a FWW for mobility. The pt's pain was managed with use of Nucynta. The pt was placed on Xarelto 10mg PO daily for VTE prophylaxis. SCDs and TEDs were also used. The pt's Hgb on POD#1 was 11.4. On POD#1, the pt was deemed appropriate for discharge to home with his family. - Discharge Data Discharge Date: 12/12/18 Discharge Disposition: Home, Self-Care 01 Condition: Good - Patient Summary/Data Consults: Consultations 12/11/18 06:49 OT Evaluation and Treatment [CONS] Routine PT Evaluation and Treatment [CONS] Routine 12/11/18 06:50 Consult to Physician [CONS] Routine - Patient Instructions Diet: Usual Diet as Tolerated Activity: Apply Ice, As Tolerated, Elevate Extremity, Full Weight Bearing Showering/Bathing: May Shower Wound/Incision Care: Keep Operative Site/Wound Site Clean and Dry, Do NOT Change Dressing Notify Provider of: Fever, Increased Pain, Swelling and Redness, Drainage, Nausea and/or Vomiting Other/Special Instructions: Please get up and moving around EVERY HOUR while awake. This helps to prevent blood clots. Please use your walker and have help with mobility as needed. Take a short walk in your home every hour while awake. Please take the Xarelto blood thinner medication daily as directed. At home, please complete the exercises that you learned during the Hospital stay. Schedule for physical therapy. Use the pain medication as needed. The medication may cause drowsiness and constipation. Contact your primary care provider for instructions if you are constipated. You may use a stool softener like docusate sodium or Colace 100mg twice daily and/or a laxative like Miralax daily for constipation. Increase your water and fiber intake while you are using the pain medication. Discontinue use of the pain medication as soon as able. Please do not use other medications that may cause drowsiness (other pain medications, anxiety pills, cold medications, sleeping pills, etc) while using the prescription pain medication. Do not use alcohol while using the pain medication. Wear the FELIX hose during the day and you may remove these at night. Elevate the limb to decrease swelling. Place ice to the area often. Place a towel between your skin and the blue pad. Use the incentive spirometer often. Take deep breaths throughout the day. Please keep the dressing in place until follow-up. Notify the Clinic if the dressing becomes saturated. Increase your protein intake while you are healing. Call the Clinic with questions or concerns - [phone]. - Discharge Plan *PRESCRIPTION DRUG MONITORING PROGRAM REVIEWED*: No *COPY OF PRESCRIPTION DRUG MONITORING REPORT IN PATIENT HERNANDEZ: No Prescriptions/Med Rec: Cyclobenzaprine [Flexeril] 10 mg PO TID PRN #40 tablet PRN Reason: Spasms Rivaroxaban [Xarelto] 10 mg PO DAILY #30 tablet Tapentadol [Nucynta] 50 - 100 mg PO Q4H PRN #60 tablet PRN Reason: Pain Home Medications: Home Meds Calcium Carbonate [Calcium] 600 mg PO DAILY 12/10/18 [History] Cholecalciferol (Vitamin D3) [Vitamin D3] 5,000 unit PO DAILY 12/10/18 [History] EPINEPHrine [Epipen] 1 dose IM ONETIME PRN 12/10/18 [History] Escitalopram Oxalate 10 mg PO BEDTIME 12/10/18 [History] Sildenafil 25 mg PO ASDIRECTED PRN 12/10/18 [History] Magnesium Citrate 2 tsp PO DAILY 12/11/18 [History] Bisacodyl [Dulcolax] 5 mg PO DAILY PRN tablet 12/12/18 [Rx] Cyclobenzaprine [Flexeril] 10 mg PO TID PRN #40 tablet 12/12/18 [Rx] Docusate Sodium [Colace] 100 mg PO BID cap 12/12/18 [Rx] Famotidine [Pepcid] 20 mg PO Q12HR tablet 12/12/18 [Rx] Magnesium Hydroxide [Milk of Magnesia] 30 ml PO BID PRN cup 12/12/18 [Rx] Rivaroxaban [Xarelto] 10 mg PO DAILY #30 tablet 12/12/18 [Rx] Sennosides [Senna] 8.6 mg PO BID PRN tablet 12/12/18 [Rx] Tapentadol [Nucynta] 50 - 100 mg PO Q4H PRN #60 tablet 12/12/18 [Rx] Patient Handouts: Total Knee Replacement, Care After, [id number], Total Knee Replacement, [id number] Referrals: Sue Galaviz PA-C [Physician [employer]] - 12/19/18 9:45 am - Discharge Summary/Plan Comment DC Time >30 min.: No - Patient Data Vitals - Most Recent: Last Vital Signs Temp 98.2 F 12/12/18 12:50 Pulse 76 12/12/18 12:50 Resp 20 12/12/18 12:50 BP 107/84 12/12/18 12:50 Pulse Ox 100 12/12/18 12:50 Weight - Most Recent: 198 lb Med Orders - Current: Current Medications Discontinued Medications Albuterol (Proventil Neb Soln) 2.5 mg NEB ONETIME [facility] Stop: 12/11/18 18:00 Bisacodyl (Dulcolax) 5 mg PO DAILY PRN PRN Reason: Constipation Bupivacaine HCl (Sensorcaine-Mpf 0.75%) Confirm Administered Dose 30 ml .ROUTE .STK-MED ONE Stop: 12/11/18 08:48 Bupivacaine HCl (Sensorcaine-Mpf 0.25%) Confirm Administered Dose 30 ml .ROUTE .STK-MED ONE Stop: 12/11/18 09:08 Last Admin: 12/11/18 11:07 Dose: 30 ml Bupivacaine HCl (Sensorcaine-Mpf 0.25%) Confirm Administered Dose 10 ml .ROUTE .STK-MED ONE Stop: 12/11/18 09:13 Calcium Carbonate/Glycine (Calcium Carbonate) 600 mg PO DAILY [facility] Last Admin: 12/12/18 09:57 Dose: 600 mg Cefazolin Sodium (Ancef) Confirm Administered Dose 2 gm .ROUTE .STK-MED ONE Stop: 12/11/18 08:47 Last Admin: 12/11/18 11:01 Dose: 2 gm Cefazolin Sodium (Ancef) Confirm Administered Dose 2 gm .ROUTE .STK-MED ONE Stop: 12/11/18 09:08 Cefazolin Sodium (Ancef) Confirm Administered Dose 2 gm .ROUTE .STK-MED ONE Stop: 12/11/18 09:09 Cholecalciferol (Vitamin D3) 5,000 unit PO DAILY [facility] Last Admin: 12/12/18 09:56 Dose: 5,000 unit Citalopram Hydrobromide (Celexa) 20 mg PO BEDTIME [facility] Last Admin: 12/11/18 20:57 Dose: 20 mg Epinephrine HCl 0.3 mg/Cefuroxime Sodium 750 mg/Sodium Chloride 29.7 ml 0 mg .XX ONETIME ONE Stop: 12/11/18 11:01 Last Admin: 12/11/18 13:57 Dose: Not Given Cyclobenzaprine HCl (Flexeril) 10 mg PO TID PRN PRN Reason: Spasms Last Admin: 12/12/18 09:56 Dose: 10 mg Dexamethasone (Dexamethasone) Confirm Administered Dose 20 mg .ROUTE .STK-MED ONE Stop: 12/11/18 09:59 Diphenhydramine HCl (Benadryl) 25 mg IVPUSH Q6H PRN PRN Reason: Pruritis Stop: 12/11/18 18:00 Docusate Sodium (Colace) 100 mg PO BID [facility] Last Admin: 12/12/18 09:56 Dose: 100 mg Epinephrine HCl (Adrenalin) Confirm Administered Dose 1 mg .ROUTE .STK-MED ONE Stop: 12/11/18 07:34 Epinephrine HCl (Epipen) 0.3 mg IM ONETIME PRN PRN Reason: anaphylaxis Famotidine (Pepcid) 20 mg PO Q12H [facility] Last Admin: 12/11/18 13:58 Dose: Not Given Famotidine (Pepcid) 20 mg PO Q12HR [facility] Last Admin: 12/12/18 11:05 Dose: 20 mg Fentanyl (Sublimaze) Confirm Administered Dose 100 mcg .ROUTE .STK-MED ONE Stop: 12/11/18 08:46 Fentanyl (Sublimaze) 50 mcg IVPUSH Q5M PRN PRN Reason: Pain Stop: 12/11/18 18:00 Hydromorphone HCl (Dilaudid) 0.2 mg IVPUSH Q2H PRN PRN Reason: Pain (moderate 4-6) Last Admin: 12/11/18 18:08 Dose: 0.2 mg Hydromorphone HCl (Dilaudid) 0.2 mg IVPUSH Q1H PRN PRN Reason: Pain Last Admin: 12/12/18 00:19 Dose: 0.2 mg Lactated Ringer's (Ringers, Lactated) 1,000 mls @ 125 mls/hr IV ASDIRECTED [facility] Stop: 12/11/18 23:00 Last Admin: 12/11/18 08:15 Dose: 125 mls/hr Cefazolin Sodium/Dextrose 2 gm (/ Premix) 50 mls @ 100 mls/hr IV Q8H [facility] Stop: 12/11/18 23:29 Last Admin: 12/11/18 13:58 Dose: Not Given Cefazolin Sodium/Dextrose 2 gm (/ Premix) 50 mls @ 100 mls/hr IV Q8H [facility] Stop: 12/12/18 09:44 Last Admin: 12/12/18 10:01 Dose: 100 mls/hr Lidocaine HCl (Xylocaine-Mpf 1%) Confirm Administered Dose 4 mls @ as directed .ROUTE .STK-MED ONE Stop: 12/11/18 08:47 Lactated Ringer's (Ringers, Lactated) Confirm Administered Dose 1,000 mls @ as directed .ROUTE .STK-MED ONE Stop: 12/11/18 11:00 Iodine (Iodine 2% Mild Tincture) Confirm Administered Dose 30 ml .ROUTE .STK- MED ONE Stop: 12/11/18 09:08 Last Admin: 12/11/18 11:00 Dose: 18 ml Iodine (Iodine 2% Mild Tincture) Confirm Administered Dose 30 ml .ROUTE .STK- MED ONE Stop: 12/11/18 09:09 Ketamine HCl (Ketalar) Confirm Administered Dose 500 mg .ROUTE .STK-MED ONE Stop: 12/11/18 08:46 Lidocaine HCl (Xylocaine-Mpf 1%) Confirm Administered Dose 5 ml .ROUTE .STK-MED ONE Stop: 12/11/18 08:48 Lidocaine/Sodium Bicarbonate (Buffered Lidocaine 1% In Ns 8.4%) 0.25 ml IDERM ONETIME PRN PRN Reason: Prior to IV Start Stop: 12/11/18 18:00 Last Admin: 12/11/18 08:15 Dose: 0.25 ml Magnesium Hydroxide (Milk Of Magnesia) 30 ml PO BID PRN PRN Reason: Constipation Midazolam HCl (Versed 1 Mg/Ml) Confirm Administered Dose 2 mg .ROUTE .STK-MED ONE Stop: 12/11/18 08:46 Naloxone HCl (Narcan) 0.1 mg IVPUSH Q5M PRN PRN Reason: Oversedation Non-Formulary Medication (Sildenafil ) 25 mg PO ASDIRECTED PRN PRN Reason: as directed Non-Formulary Medication (Magnesium Citrate [Magnesium Citrate]) 2 tsp PO DAILY [facility] Ondansetron HCl (Zofran) 4 mg IVPUSH Q6H PRN PRN Reason: Nausea/Vomiting Oxycodone HCl (Oxycontin) 10 mg PO ONETIME [facility] Stop: 12/11/18 13:30 Last Admin: 12/11/18 08:57 Dose: 10 mg Oxycodone HCl (Oxycodone) 5 - 10 mg PO Q4H PRN PRN Reason: Pain Last Admin: 12/11/18 16:27 Dose: 10 mg Pregabalin (Lyrica) 50 mg PO ONETIME [facility] Stop: 12/11/18 16:00 Last Admin: 12/11/18 08:57 Dose: 50 mg Propofol (Diprivan 20 Ml) Confirm Administered Dose 600 mg .ROUTE .STK-MED ONE Stop: 12/11/18 08:46 Propofol (Diprivan 20 Ml) Confirm Administered Dose 200 mg .ROUTE .STK-MED ONE Stop: 12/11/18 11:00 Rivaroxaban (Xarelto) 10 mg PO DAILY [facility] Rivaroxaban (Xarelto) 10 mg PO DAILY [facility] Last Admin: 12/12/18 11:06 Dose: 10 mg Ropivacaine (Naropin 0.5%) Confirm Administered Dose 30 ml .ROUTE .STK-MED ONE Stop: 12/11/18 07:34 Senna (Senna) 8.6 mg PO BID PRN PRN Reason: Constipation Sodium Chloride (Saline Flush) 10 ml FLUSH ASDIRECTED PRN PRN Reason: Keep Vein Open Stop: 12/11/18 18:00 Tapentadol (Nucynta) 50 - 100 mg PO Q6H PRN PRN Reason: Pain Last Admin: 12/12/18 06:04 Dose: 100 mg Tapentadol (Nucynta) 50 - 100 mg PO Q4H PRN PRN Reason: Pain Last Admin: 12/12/18 14:03 Dose: 100 mg Tranexamic Acid (Cyklokapron) Confirm Administered Dose 1,000 mg .ROUTE .STK- MED ONE Stop: 12/11/18 09:08 Last Admin: 12/11/18 11:11 Dose: 1,000 mg Tranexamic Acid (Cyklokapron) Confirm Administered Dose 1,000 mg .ROUTE .STK- MED ONE Stop: 12/11/18 09:09 Vancomycin HCl (Vancomycin) Confirm Administered Dose 1 gm .ROUTE .STK-MED ONE Stop: 12/11/18 09:08 Vancomycin HCl (Vancomycin) Confirm Administered Dose 1 gm .ROUTE .STK-MED ONE Stop: 12/11/18 09:09 Last Admin: 12/11/18 11:08 Dose: 1 gm
--- NOTE | 2018-12-16 16:47 | PCM.OPNOTE ---
- General Post-Op/Procedure Note Date of Surgery/Procedure: 12/11/18 Operative Procedure(s): right total knee arthroplasty Pre Op Diagnosis: right knee osteoarthrosis Post-Op Diagnosis: Same Anesthesia Technique: Local, MAC, Spinal Primary Surgeon: Live Ghosh Anesthesia Provider: Charis Serrato Weight Reducing Technician: Sue Galaviz Weight Reducing Technician: Bre Fields EBSaundra in mLs: 500 Complications: None Condition: Good Free Text/Narrative:: size 10/12 35x10
--- NOTE | 2018-12-16 17:19 | OR ---
DATE OF OPERATION: 12/11/2018 SURGEON: Live Ghosh MD OPERATION PERFORMED: Right total knee arthroplasty. PREOPERATIVE DIAGNOSIS: Right knee osteoarthrosis. POSTOPERATIVE DIAGNOSIS: Right knee osteoarthrosis. ANESTHESIA: Local MAC with spinal. ANESTHESIA PROVIDER: Patricia Gamez. SENIOR STATISTICIAN: Sue Galaviz PA-C, and Bre Fields LPN. ESTIMATED BLOOD LOSS: 500 mL. COMPLICATIONS: None. CONDITION: Stable. IMPLANTS: 1. Reji size 7 press-fit CR femur. 2. [place] size 7 press-fit tibial base plate. 3. [place] size 7, 9 mm CS polyethylene insert. 4. [place] size 35 x 10 mm press fit patella. DESCRIPTION OF PROCEDURE: The patient was identified in the preop holding area. Proper site was marked and identified by the surgeon. The patient was taken back to the operating theater. After adequate anesthesia, the patient's right lower extremity had a nonsterile tourniquet applied and it was sterilely prepped and draped in the usual sterile fashion. OR time-out was performed. The patient received 2 g IV Ancef. At this time, the right lower extremity was exsanguinated. Tourniquet was insufflated to 300 mmHg. Standard medial parapatellar incision was made. Medial parapatellar arthrotomy was created. Deep fibers of the MCL were raised and anterior fat pad was resected. At this time, attention was turned to the patella. Patella measured 26, it was resected to a 15 for 35 x 10 mm patella. Drill holes were then drilled and found to be in adequate position. The drill was then drilled in the distal femur and the intramedullary distal femoral cutting guide was then placed. 8 mm was resected off the distal femur and was found to be an adequate resection. Sizing guide was placed. It was found to be a size 7 press-fit CR femur that was shown on the implant record at the beginning of this dictation. The drill holes were drilled for the epicondylar axis using [place]ites[place] line and epicondyles as reference. At this time, the 4-in - 1 cutting block was placed. An anterior posterior and anterior and posterior chamfer cuts were then completed. Attention was turned to the tibia. The posterior medial lateral retractors were placed. The extramedullary tibial guide was placed. It was placed in the old footprint of the ACL. It was aligned with the center of the ankle and 0 degrees of slope, 9 mm was then resected off the unaffected side. There was found to be an acceptable reduction. At this time, posterior osteophytes were removed along with medial and lateral meniscus. A trial implant was placed with a correct sized tibia that was mentioned at the beginning of the dictation. A Reji size 7, 9 mm CS polyethylene insert was then placed. The patient's knee was brought through range of motion. The patella was tracking centrally and was stable to varus and valgus stress. Alignment was found to be roughly at 0 degrees. The tibia was stamped and drilled in proper rotation. The universal tibial base plate was impacted in place. Next, the Reji size 7 press-fit CR femur impacted into place and the [place] size 7 mm CS polyethylene insert was placed. The patient's knee was brought into full extension. The patella was then press-fit in place at this time. Tourniquet was deflated. One liter dilute Betadine solution was irrigated through the knee along with 3 L of pulse lavage irrigation with Ancef. Periarticular injection was then completed. The patient's knee was brought through a range of motion. Knee was found to be stable to varus valgus stress, the patella was tracking centrally with full range of motion. At this time, a #2 barbed suture was used for closure of the medial parapatellar arthrotomy. Topical tranexamic acid was placed. 2-0 Vicryl was used subcutaneously, Prineo was used for the skin. The patient tolerated the procedure well and was sent to the PACU in stable condition. BAR /[id number] DANIEL
== END 2018-12-12 14:05 | disposition home or self-care (01) | DRG 470 ==
LOC: JD.SDS 08:00 → JD.MS 08:01
PROVIDERS: ADMIT Orthopaedic Surgery; ATTEND Orthopaedic Surgery
PROC: 0SRC0JA Replacement of Right Knee Joint with Synthetic Substitute, Uncemented, Open Approach (ICD-10-PCS; principal; 2018-12-11)
DX: M17.11 Unilateral primary osteoarthritis, right knee (principal); G47.33 Obstructive sleep apnea (adult) (pediatric); G47.00 Insomnia, unspecified; F41.9 Anxiety disorder, unspecified; H54.7 Unspecified visual loss; I95.81 Postprocedural hypotension; R00.1 Bradycardia, unspecified; N53.9 Unspecified male sexual dysfunction; E55.9 Vitamin D deficiency, unspecified; F32.9 Major depressive disorder, single episode, unspecified; Z99.81 Dependence on supplemental oxygen; Z79.899 Other long term (current) drug therapy; Z88.6 Allergy status to analgesic agent; K59.03 Drug induced constipation; T50.905A Adverse effect of unspecified drugs, medicaments and biological substances, initial encounter; M54.5 Low back pain
CPT/HCPCS: 01402; 36415; 64450; 73560-26-RT; 73560-RT; 80053; 85027; 87641; 94640; 97110-GP; 97116-GP; 97161-GP; 97165-GO; 97535-GO; A9270-GY; C1776; J0171; J0690; J0697; J1100; J1170; J2001; J2250; J2704; J2795; J3010; J3370; J3490; J7120

== ENCOUNTER → 2022-05-15 | Day surgery (SDC) | payer OTHER ==
[~2022-05-15] MED LIST changes: -Albuterol 0.083% 2.5 MG/3 ML Neb Soln NEB SCH; -Bisacodyl 5 MG Tab PO PRN; -EPINEPHrine 1 MG/1 ML Amp ONE; -Famotidine 20 MG Tab PO SCH; -HYDROmorphone 0.5 MG/0.5 ML Syringe IVPUSH PRN; +Lidocaine 1% 0 ML ONE; +Lidocaine 1% 2 ML ONE; -Lidocaine 1%/Sod Bicarbonate in NS 8.4% 1 ML Syringe IDERM PRN; -Magnesium Hydroxide 400 MG/5 ML Susp 30 ML Cup PO PRN; +Midazolam 1 MG/ML 2 ML SDV ONE; -Naloxone 0.4 MG/ML SDV IVPUSH PRN; -Pregabalin 25 MG Cap PO SCH; +Propofol 200 MG/20 ML SDV ONE; -Ropivacaine 0.5% 5 MG/ML 30 ML SDV ONE; -Sennosides 8.6 MG Tab PO PRN; -Sodium Chloride 0.9% 10 ML Syringe FLUSH PRN; -ceFAZolin 2 GM in Premix Bag 1 BAG IV SCH; +fentaNYL 100 MCG/2 ML SDV IVPUSH PRN; +fentaNYL 100 MCG/2 ML SDV ONE; -oxyCODONE 5 MG Tab PO PRN; -oxyCODONE ER 10 MG TAB.ER PO SCH
== END | disposition home or self-care (01) ==
LOC: JD.SDS 08:31
PROVIDERS: ATTEND Surgery
DX: Z12.11 Encounter for screening for malignant neoplasm of colon (principal); K57.30 Diverticulosis of large intestine without perforation or abscess without bleeding; F41.9 Anxiety disorder, unspecified; G47.33 Obstructive sleep apnea (adult) (pediatric); Z88.6 Allergy status to analgesic agent; Z79.899 Other long term (current) drug therapy; Z98.890 Other specified postprocedural states
CPT/HCPCS: 45378; J2704; J7120; J2250; J3010; J3490